=== PATIENT | male | born 1965 | race American Indian/Alaskan Native ===

== ENCOUNTER 2021-11-21 11:19 | Emergency (ER) | payer OTHER ==
[2021-11-21 14:25] LABS: Hematocrit 42.7 % (35.5-45.6); Hemoglobin 14.7 gm/dl (11.8-15.2); Mean Corpuscular HGB Conc 34 % (32-34); Mean Corpuscular Volume 90 fl (84-94); Platelet Count 211 K/mm3 (140-440); Red Blood Count 4.76 M/mm3 (3.65-5.03); Red Cell Distribution Width 13.5 % (13.2-15.2)
[2021-11-21 14:42] LABS: Alanine Aminotransferase 14 units/L (7-56); Albumin 4.8 g/dL (3.9-5); BUN/Creatinine Ratio 14; Blood Urea Nitrogen 13 mg/dL (9-20); Calcium 9.8 mg/dL (8.4-10.2); Hemolysis Index 8
[2021-11-21] MEDS ORDERED: ONDANSETRON 4 MG/2 ML INJ IV ONE (22:15)
[2021-11-21] MEDS ORDERED: MORPHINE 4 MG/1 ML INJ IV ONE (22:15)
--- NOTE | 2021-11-21 22:22 | Emergency Department Report ---
ED Abdominal Pain HPI - General Chief Complaint: Abdominal Pain Stated Complaint: LT SIDE PAIN Time Seen by Provider: 11/21/21 22:06 Source: patient Mode of arrival: Ambulatory Limitations: No Limitations - History of Present Illness Initial Comments: Patient is 56 years old male with no significant past medical history. Patient presented to the ER complaining of left flank pain has been going on for few days. Patient describes his pain as sharp intermittent with no radiation. Patient denied any fever or chills. No hematuria or dysuria. Patient denied any chest pain or shortness of breath. MD Complaint: flank pain -: days(s) Location: L flank Radiation: none Migration to: no migration Severity scale (0 -10): 4 Quality: sharp Associated Symptoms: denies other symptoms. denies: nausea, vomiting, diarrhea, fever, chills, constipation, dysuria, hematemesis, hematochezia, melena, hematuria ED Review of Systems ROS: Stated complaint: LT SIDE PAIN Other details as noted in HPI Comment: All other systems reviewed and negative Constitutional: denies: chills, fever Respiratory: denies: cough, shortness of breath, SOB with exertion, SOB at rest Cardiovascular: denies: chest pain, palpitations Gastrointestinal: abdominal pain. denies: nausea, vomiting, diarrhea, constipation, hematemesis, melena, hematochezia Musculoskeletal: back pain Neurological: denies: headache, weakness, numbness, paresthesias, confusion, abnormal gait ED Physical Exam - General Limitations: No Limitations General appearance: alert, in no apparent distress - Head Head exam: Present: atraumatic, normocephalic, normal inspection - Eye Eye exam: Present: normal appearance - ENT ENT exam: Present: normal exam, normal orophraynx, mucous membranes moist - Neck Neck exam: Present: normal inspection, full ROM. Absent: tenderness, meningismus - Respiratory Respiratory exam: Present: normal lung sounds bilaterally - Cardiovascular Cardiovascular Exam: Present: regular rate, normal rhythm, normal heart sounds - GI/Abdominal GI/Abdominal exam: Present: soft, normal bowel sounds. Absent: distended, tenderness, guarding, rebound, rigid, mass, bruit, pulsatile mass, hernia - Extremities Exam Extremities exam: Present: normal inspection, full ROM, normal capillary refill. Absent: tenderness, pedal edema, calf tenderness - Back Exam Back exam: Present: normal inspection, full ROM, tenderness, CVA tenderness (L). Absent: CVA tenderness (R) - Neurological Exam Neurological exam: Present: alert, oriented X3, CN II-XII intact, normal gait, reflexes normal. Absent: motor sensory deficit - Psychiatric Psychiatric exam: Present: normal mood - Skin Skin exam: Present: warm, intact, normal color ED Course Vital Signs 11/21/21 11:54 Temperature 98.9 F Pulse Rate 83 Respiratory 20 Rate Blood Pressure 160/87 [Left] O2 Sat by Pulse 97 Oximetry ED Medical Decision Making - Lab Data Result diagrams: 11/21/21 14:10 11/21/21 14:10 - Radiology Data Radiology results: report reviewed - Medical Decision Making Patient is 56 years old male with no significant past medical history. Patient presented to the ER complaining of left flank pain has been going on for few days. Patient describes his pain as sharp intermittent with no radiation. Patient denied any fever or chills. No hematuria or dysuria. Patient denied any chest pain or shortness of breath. Labs reviewed and is unremarkable. CT abdomen and pelvis showed no acute abnormalities. Patient received morphine and Zofran and Solu-Medrol. Patient symptoms most likely musculoskeletal. Patient given prescription for tramadol and advised to follow-up with his primary care physician in the next 2 to 3 days and to return to the ER if he develop any new symptoms. Critical care attestation.: If time is entered above; I have spent that time in minutes in the direct care of this critically ill patient, excluding procedure time. ED Disposition Clinical Impression: Acute flank pain, Acute back pain Disposition: HOME / SELF CARE / HOMELESS Is pt being admited?: No Condition: Stable Instructions: Acute Back Pain, Adult Referrals: PRIMARY CARE, [Primary Care Provider] - 3-5 Days
--- NOTE | 2021-11-21 23:19 | Cat Scan Report ---
CT ABDOMEN AND PELVIS WITHOUT CONTRAST INDICATION / CLINICAL INFORMATION: LEFT FLANK PAIN. TECHNIQUE: Axial CT images were obtained through the abdomen and pelvis without IV contrast. All CT scans at this location are performed using CT dose reduction for ALARA by means of automated exposure control. COMPARISON: None available. FINDINGS: LOWER CHEST: 3-4 mm noncalcified pleural-based pulmonary nodule right lower lobe. No acute findings w ithin the lower chest. LIVER: Hypodense lesion measuring a centimeter in size maximum dimension with adjacent smaller hypode nse lesion. As no evidence of focal mass. GALLBLADDER: Gallbladder sludge is suggested layering dependently within the fundus. No inflammatory changes.. BILE DUCTS: No significant abnormality. SPLEEN: No significant abnormality. PANCREAS: No significant abnormality. ADRENALS: No significant abnormality. RIGHT KIDNEY / URETER: No significant abnormality. No urolithiasis. LEFT KIDNEY / URETER: No significant abnormality. No urolithiasis. STOMACH / DUODENUM / SMALL BOWEL: No significant abnormality. COLON: Diverticulosis without acute inflammation. APPENDIX: No significant abnormality. PERITONEUM: No free air or free fluid are present within the abdomen or pelvis. LYMPH NODES: No significant adenopathy. AORTA / ARTERIES: Mild atherosclerotic calcification without acute abnormality. IVC / VEINS: No significant abnormality. URINARY BLADDER: Decompressed REPRODUCTIVE ORGANS: Prostate is enlarged. ADDITIONAL ABDOMINAL/PELVIC FINDINGS: Bilateral intrapelvic phleboliths. SKELETAL SYSTEM: No significant abnormality. IMPRESSION: 1. No acute findings within the abdomen or pelvis. INCIDENTAL PULMONARY NODULE RECOMMENDATION RECOMMENDATION: Perifussural/Subpleural Nodule size <10 mm without suspicious features - Low Risk Patient: No routine follow-up - High Risk Patient: No routine follow-up Note These recommendations do not apply to lung cancer screening, patients with immunosuppression, o r patients with known primary cancer. Note Newly detected indeterminate nodule in persons 35 years of age or older. Persons under the age of 35 should not receive follow-up unless there is a known primary cancer. Note A Perifissural Nodule is a fissure-attached/subpleural, homogeneous, solid nodule that had smoo th margins and an oval, lentiform, or triangular shape. They represent about 20% of nodules detected in lung cancer screening, are invariably benign, and do not require follow-up. Nodules 10 mm or large r (or those with suspicious features) will continue to be managed based on the size criteria. Low Risk Patient -- minimal or absent history of smoking and of other known risk factors. High Risk Patient -- history of smoking or of other known risk factors. Nodule dimensions are average of long and short axes, rounded to the nearest millimeter. Based on 2017 Fleischner Society Guidelines found in Radiology 2017 284:228-243. https://[email or web address] https://www.ncbi.nlm.nih.gov/pmc/articles/PCX3725850/ Signer Name: Charanjit Medina II, MD Signed: 11/21/2021 11:15 PM Workstation Name: [id number]
[2021-11-21] MEDS ORDERED: methylPREDNISolone Sod Succinate 125 MG/2 ML INJ IV ONE (23:22)
[2021-11-21 23:47] LABS: Bilirubin,Urine NEG (Negative); Blood,Urine SM (Negative); Color,Urine Yellow (Yellow); Mucus,Urine FEW /HPF; Urobilinogen,Urine < 2.0 mg/dL (<2.0)
[2021-11-22 00:40] VITALS: BP 165/98
== END 2021-11-22 00:39 | disposition home or self-care (01) ==
LOC: ED 11:19
DX: R10.32 Left lower quadrant pain (principal); M54.9 Dorsalgia, unspecified
CPT/HCPCS: 36415; 74176; 80053; 81001; 83690; 85027; 96374; 96375; 99284; J2270; J2405; J2930